=== PATIENT | male | born 1960 | race Caucasian/White ===

== ENCOUNTER 2020-01-27 09:19 | Outpatient (CLI) | payer BC, SELFPAY ==
[2020-01-27 09:42] LABS: Basophils Percent Auto 0.3 % (0.2-1.2); Eosinophils Absolute Auto 0.1 K/mm3 (0-0.3); Eosinophils Percent Auto 0.8 % (0-4.4); Hematocrit 50.3 % (42.0-52.0); Hemoglobin 17.5 g/dL (14.0-18.0); Immature Granulocyte Absolute 0.02 K/mm3 (0.00-0.031); Immature Granulocyte Percent A 0.3 % (0-0.5); Lymphocytes Absolute Auto 2.19 K/mm3 (0.9-3.2); Lymphocytes Percent Auto 28.8 % (18.3-44.2); Mean Corpuscular HGB Conc 34.8 g/dl (32-36); Mean Corpuscular Hemoglobin 33.6 pg (26-34); Mean Corpuscular Volume 96.5 fl (80-100); Mean Platelet Volume 10.5 fl (7.4-10.4); Monocytes Absolute Auto 0.6 K/mm3 (0.1-0.6); Monocytes Percent Auto 8.4 % (2.6-8.5); Neutrophils Absolute Auto 4.7 K/mm3 (1.3-6.7); Neutrophils Percent Auto 61.4 % (45.5-73.1); Platelet Count Result 178 k/mm3 (150-375); Red Blood Count 5.21 M/mm3 (4.6-6.20); Red Cell Distribution Width 13.2 % (11.5-14.5); White Blood Count 7.6 K/mm3 (4.5-10.0)
[2020-01-27 11:02] LABS: Free T4 Free Thyroxine 1.06 ng/mL (0.78-2.19); Vitamin D 25 Hydroxy 46.3 ng/mL
[2020-01-27 11:40] LABS: Alanine Aminotransferase 29 U/L (4-50); Aspartate Amino Transferase 30 U/L (17-59); Blood Urea Nitrogen 15 mg/dL (9-20); Calcium 9.1 mg/dL (8.4-10.2); Carbon Dioxide 25 mmol/L (22-30); Chloride 106 mmol/L (98-107); Cholesterol 177 mg/dL (0-200); Estimated Glomerular Filt Rate > 60; Glucose 102 mg/dL (75-110); HDL Direct 59 mg/dL; Potassium 4.4 mmol/L (3.4-5.0); Sodium 135 mmol/L (137-145); Triglycerides 69 mg/dL (<150); Uric Acid 5.4 mg/dL (3.5-8.5)
[2020-01-27 11:51] LABS: LDL Cholesterol Direct 84 mg/dL
[2020-01-27 11:58] LABS: Hemoglobin A1C 5.8 % (<5.7)
[2020-01-27 12:11] LABS: Thyroid Stimulating Hormone 0.893 uIU/mL (0.465-4.680)
[2020-01-27 12:27] LABS: Prostate Specific Antigen 1.8 ng/mL (< OR = 4.0)
[2020-01-27 13:08] LABS: Folic Acid > 20.0 ng/mL (2.76->20)
[2020-02-02 14:25] LABS: Testosterone Total 607 ng/dL (250-1100)
== END 2020-01-27 09:20 | disposition home or self-care (01) ==
LOC: ANHLAB 09:20
PROVIDERS: PCP Internal Medicine; Visit Provider Internal Medicine
DX: Z00.00 Encounter for general adult medical examination without abnormal findings (principal); Z12.5 Encounter for screening for malignant neoplasm of prostate; E55.9 Vitamin D deficiency, unspecified
CPT/HCPCS: 36415; 80048; 80061; 82306; 82607; 82746; 83036; 83735; 84153; 84402; 84403; 84439; 84443; 84450; 84460; 84550; 85025; G0103

== ENCOUNTER 2020-03-06 02:41 | Outpatient (CLI) | payer BC, SELFPAY ==
[2020-03-06 18:39] LABS: SARS-CoV-2 RNA PCR Negative
== END 2020-03-06 02:42 | disposition home or self-care (01) ==
LOC: ANHCOVIDDT 02:41
PROVIDERS: PCP Internal Medicine; Visit Provider Internal Medicine Gastroenterology
DX: Z01.812 Encounter for preprocedural laboratory examination (principal); Z20.828 Contact with and (suspected) exposure to other viral communicable diseases
CPT/HCPCS: 87635; C9803; U0003

== ENCOUNTER 2020-03-08 00:43 | Day surgery (SDC) | payer BC, SELFPAY ==
[2020-02-29 12:27] VITALS: BMI 34.3
--- NOTE | 2020-03-08 07:31 | WPDANESEPPF ---
Anes - Initial Pre Proc Eval Procedure: Operation Date: 03/08/20 09:00 Proposed Procedures p Colonoscopy - Ronny Ryan MD Date/Time: 03/08/20 07:31 Surgeon: Ronny Ryan MD Pre Op Diagnosis: Occult GI Bleed/ Fam Hx Colon Polyps Patient Data Age: 60 Gender: M Height: 1.85 m Weight: 118 kg Allergies Allergy/AdvReac Type Severity Reaction Status Date / Time No Known Allergies Allergy Verified 03/08/20 07:48 Home Medications Medication Instructions Recorded Confirmed Type allopurinol 300 mg tablet 300 mg PO DAILY 90 Days #90 tablet 02/01/20 02/29/20 Rx amlodipine 10 mg tablet 10 mg PO DAILY 90 Days #90 tablet 02/01/20 02/29/20 Rx atorvastatin 20 mg tablet 20 mg PO DAILY 90 Days #90 tablet 02/01/20 02/29/20 Rx metoprolol succinate 100 mg 100 mg PO DAILY 90 Days #90 tablet 02/01/20 02/29/20 Rx tablet,extended release 24 hr Patient hx anesthesia problems: none Family hx anesthesia problems: none PMFSH Past Medical History Medical History (Updated 03/08/20 @ 07:33 by Philip Arvizu MD) Enlarged prostate without lower urinary tract symptoms (luts) Hypertensive heart disease without heart failure Mixed hyperlipidemia Obesity Obstructive sleep apnea (adult) (pediatric) CPAP Paroxysmal atrial fibrillation CARDIOVERTED 2011 Positive occult stool blood test Surgical History Surgical History (Updated 03/08/20 @ 07:33 by Philip Arvizu MD) Hx of eye surgery R-EYE SOCKET REBUILT 2017 Family History Family History (System 09/06/19 @ 16:33 by Maryana Burch) Father Family history of gout Hypertension Mother Family history of arthritis Grandparent Family history of coronary artery disease Diabetes mellitus Other Cerebrovascular accident Family history of lung cancer Family history of malignant neoplasm of breast Family history of pancreatic cancer Social History Social History (System 09/06/19 @ 16:33 by Maryana Burch) Smoking status: Heavy tobacco smoker Second hand tobacco smoke exposure: No Alcohol intake: current Anes - Eval Final PreProcedure Day of Procedure 03/08/20 07:31 Patient weight: obese Heart: regular rate and rhythm Lungs: clear to auscultation and normal air movement Airway: Mallampati scale class II Neurological: alert and oriented Last oral intake: >/= 8 hours ASA classification: III Emergent: no Anesthetic plan: proceed Anesthesia type and monitoring: general GIVS Informed Consent: The patient's anesthetic plan and its attendant risks and benefits were discussed with the patient/family/POA. Questions were solicited and answers provided to the satisfaction of the patient/family/POA.
[2020-03-08] MEDS: LACTATED RINGERS 1,000 ML 150 ML IV CONT (08:00)
--- NOTE | 2020-03-08 08:50 | WPDGICN ---
Assessment and Plan Assessment and plan (1) Positive occult stool blood test: Code(s): R19.5 - Other fecal abnormalities Status: Acute Assessment and Plan: Patient recently found to have occult blood in the stool on a routine screening exam. Plan is for surveillance colonoscopy at this time. Further recommendations will be given after endoscopy. (2) Family history of colonic polyps: Code(s): Z83.71 - Family history of colonic polyps Status: Acute Assessment and Plan: Patient's mother had colon polyps. For this reason surveillance colonoscopy at 5 year intervals is advised. (3) Umbilical hernia: Code(s): K42.9 - Umbilical hernia without obstruction or gangrene Status: Acute Assessment and Plan: plan to observe conservatively at this time. Patient is advised if umbilical hernia become symptomatic that surgical therapy will be required. GI Consult Note Consult date/time: 03/08/20 08:50 HPI: Ortiz Daniels Jr. is a 60 year old male seen in evaluation at the request of Dr Brian Alvarez. Patient is referred for evaluation because of occult blood in stool. He denies any visible or obvious bleeding. His current weight appetite bowel movements are normal. Occult blood identified on routine screening exam. Patient's family history is significant that mother had colon polyps. Patient states his own weight appetite bowel movements are normal. He denies abdominal pain he has had no bleeding. Review of Systems Review of Systems: All systems reviewed & are unremarkable except as noted in HPI and below PMFSH Past Medical History Medical History Enlarged prostate without lower urinary tract symptoms (luts) Hypertensive heart disease without heart failure Mixed hyperlipidemia Obesity Obstructive sleep apnea (adult) (pediatric) CPAP Paroxysmal atrial fibrillation CARDIOVERTED 2011 Positive occult stool blood test Surgical History Surgical History Hx of eye surgery R-EYE SOCKET REBUILT 2017 Family History Family History Father Family history of gout Hypertension Mother Family history of arthritis Grandparent Family history of coronary artery disease Diabetes mellitus Other Cerebrovascular accident Family history of lung cancer Family history of malignant neoplasm of breast Family history of pancreatic cancer Social History Social History (System 09/06/19 @ 16:33 by Maryana Burch) Smoking status: Heavy tobacco smoker Second hand tobacco smoke exposure: No Alcohol intake: current Meds Home Medications and Allergies Home Medications Medication Instructions Recorded Confirmed Type allopurinol 300 mg tablet 300 mg PO DAILY 90 Days #90 tablet 02/01/20 02/29/20 Rx amlodipine 10 mg tablet 10 mg PO DAILY 90 Days #90 tablet 02/01/20 02/29/20 Rx atorvastatin 20 mg tablet 20 mg PO DAILY 90 Days #90 tablet 02/01/20 02/29/20 Rx metoprolol succinate 100 mg 100 mg PO DAILY 90 Days #90 tablet 02/01/20 02/29/20 Rx tablet,extended release 24 hr Allergies Allergy/AdvReac Type Severity Reaction Status Date / Time No Known Allergies Allergy Verified 03/08/20 07:48 Exam Narrative: Exam Narrative: Physical exam reveals patient to be alert. Vital signs stable. HEENT exam unremarkable. Lungs are clear to auscultation and percussion. Heart is without murmur or extra sounds. Abdominal exam bowel sounds are present soft nontender with no organomegaly. Digital external rectal exam is normal
[2020-03-08 10:02] VITALS: BP 128/67; PULSE 100; RESP 21; O2SAT 97
[2020-03-08 10:12] VITALS: BP 119/82; PULSE 97; RESP 22; O2SAT 99
[2020-03-08 10:22] VITALS: BP 121/88; PULSE 91; RESP 18; O2SAT 99
== END 2020-03-08 10:31 | disposition home or self-care (01) ==
PROVIDERS: PCP Internal Medicine; Visit Provider Internal Medicine Gastroenterology
PROC: 0DJD8ZZ Inspection of Lower Intestinal Tract, Via Natural or Artificial Opening Endoscopic (ICD-10-PCS; CPT 45378; principal; 2020-03-08 09:00)
DX: K92.1 Melena (principal); Z83.71 Family history of colonic polyps; K42.9 Umbilical hernia without obstruction or gangrene; D12.3 Benign neoplasm of transverse colon; D12.5 Benign neoplasm of sigmoid colon; D12.8 Benign neoplasm of rectum; K64.8 Other hemorrhoids
CPT/HCPCS: 45385; 88305; J7120

== ENCOUNTER 2024-11-29 00:33 | Day surgery (SDC) | payer BC, MEDICARE, SELFPAY ==
[2024-11-17 15:24] VITALS: BMI 34.4
--- NOTE | 2024-11-17 15:42 | PC.NURSE ---
Spoke with patient regarding medication Eliquis. Patient verbalizes understanding that the last dose is to be taken on 11/25/2024 and the Endoscopist will instruct them when to restart after the procedure.
--- OUTSIDE RECORDS SUMMARY | 2024-11-29 00:36 | XMS_ITS | Clinical Summary ---
Author Organization [facility] Address [facility] [place] [address] Care Team Providers Care Manufacturing Engineering Director Name Role Phone Dereck Marsh MD Primary Care Provider [phone] Allergies No known active allergies Medications allopurinol (ZYLOPRIM) 300 MG tabletIndications: Idiopathic chronic gout of multiple sites without tophus TAKE 1 TABLET BY MOUTH DAILY 90 tablet 1 07/14/20 24 Active atorvastatin (LIPITOR) 20 MG tabletIndications: Mixed hyperlipidemia TAKE 1 TABLET BY MOUTH EVERY NIGHT AT BEDTIME 90 tablet 1 08/14/19 25 Active amLODIPine (NORVASC) 10 MG tabletIndications: Primary hypertension TAKE 1 TABLET BY MOUTH DAILY 90 tablet 1 08/14/19 25 Active metoprolol succinate ER (TOPROL-XL) 100 MG 24 hr tabletIndications: Primary hypertension,Chron ic atrial fibrillation (CMS/HCC HHS/HCC) TAKE 1 TABLET BY MOUTH DAILY 90 tablet 1 08/14/19 25 Active ELIQUIS 5 MG tabletIndications: Permanent atrial fibrillation (CMS/HCC HHS/HCC) TAKE 1 TABLET BY MOUTH TWO TIMES A DAY 180 tablet 1 11/14/19 25 Active apixaban (ELIQUIS) 5 MG tabletIndications: Permanent atrial fibrillation (CMS/HCC HHS/HCC) take 1 tablet by mouth two times a day 180 tablet 1 01/11/20 24 025 Discontinued Active Problems Problem Noted Date Diagnosed Date Umbilical hernia without obstruction or gangrene 01/13/2023 Overview (01/13/2023): Added automatically from request for surgery [id number] Essential (primary) hypertension 01/04/2023 Spasmodic torticollis 11/03/2022 Non-recurrent acute suppurat jorge l otitis media of left ear with spontaneous rupture of tympanic membrane 05/20/2022 Permanent atrial fibrillation ([facility]) 05/20/2022 Torticollis, acquired 04/07/2022 Spinal stenosis of cervical region 04/07/2022 Other cervical disc degenera tion, unspecified cervical region 04/07/2022 Foraminal stenosis of cervical region 04/07/2022 Spondylolisthesis of cervical region 04/07/2022 Cervicalgia 04/07/2022 Tremor 04/07/2022 Hypertropia of right eye 05/13/2017 Diplopia 03/03/2017 Orbital fracture 2017 Fracture of other specified skull and facial bones, unspecified side, initial encounter for closed fracture 2017 Fracture of orbital floor, b low-out, right, closed, initial encounter 01/27/2017 Encounters Date Type Department Care Team Description 11/14/2024 3:20 PM CDT Office Visit [facility] Family & Internal Medicine [address] [address] Dereck Marsh MD Follow Up; Hypertension; Surgical Clearance 11/14/2024 Scan [facility] INFO SRVCS Scanned, [facility] 11/14/2024 Travel from Last 3 Months Immunizations Immunization Administration Dates Next Due Fluzone Adult - >Age 3 (Pref illed Syringe) 11/04/2021(Deferred: Patient Refused) MODERNA COVID-19 (TEASELER MIR COSME), MRNA, LNP-S, PF, 50 MCG/ 0.25 ML DOSE 06/20/2021 Family History Medical History Relation Comments Diabetes Mother Heart Attack Mother Hypertension Mother cardiac stent Mother Relation Status Comments Daughter Alive Father (Age 50) suicide Mother Alive Social History Tobacco Use Types Packs/Day Years Used Date Smoking Tobacco: Every Day Cigarettes 0.5 30 Passive Smoke Exposure: Current Smokeless Tobacco: Never Tobacco Cessation:Ready to Q uit: No; Counseling Given: Yes Comments:Trying to quit, some days none, some days a few Alcohol Use Standard Drinks/Week Comments Not Currently 0 (1 standard drink = 0.6 oz pur e alcohol) PHQ-2 Answer Date Recorded Patient Health Questionnaire-2 Score 0 03/02/2024 Sex and Gender Information Value Date Recorded Sex Assigned at Male 11/14/2024 3:12 PM CDT Legal Sex Male 1:56 AM CDT Gender Identity Male 11/14/2024 3:12 PM CDT Sexual Orientation Not on file Last Filed Vital Signs Vital Sign Reading Time Taken Comments Blood Pressure 138/86 11/14/2024 3:33 PM CDT Pulse 77 11/14/2024 3:11 PM CDT Temperature 36.2 C (97.2 F) 11/14/2024 3:11 PM CDT Respiratory Rate 16 11/14/2024 3:11 PM CDT Oxygen Saturation 99% 11/14/2024 3:11 PM CDT Inhaled Oxygen Concentration - - Weight 121.1 kg (267 lb) 11/14/2024 3:11 PM CDT Height 182.9 cm (6') 11/14/2024 3:11 PM CDT Body Mass Index 36.21 11/14/2024 3:11 PM CDT Plan of Treatment Upcoming Encounters Date Type Department Care Team (Late st Contact Info) Description 11/30/2024 10:40 AM CDT Office Visit [facility] - [address], [address] [place] [phone] Chang Carmona MD [address] [place] [address] 02/22/2025 10:40 AM CDT Office Visit [facility] - [address], [address] [place] [phone] Chang Carmona MD [address] [place] [address] 05/24/2025 1:00 PM CHILDREN'S AUTHOR Office Visit [facility] Family & Internal Medicine [address] [address] Dereck Marsh MD [address] [facility] [address] [place] [address] Health Maintenance Due Date Last Done Comments Annual Physical 01/28/1963 Hepatitis C 01/28/1978 DTaP, Tdap and Td Vaccines ( 1 - Tdap) 01/28/1979 Pneumococcal Vaccine: 50+ Years (1 of 2 - PCV) 01/28/1979 Zoster Vaccines (1 of 2) 01/28/2010 RSV Immunization or 60+ Years (1 - Risk 60-74 years 1-dose series) 2020 COVID-19 Vaccine (4 - 2023-2 5 season) 2024 06/20/2021, 10/21/2020, 09/29/2020 PHQ-2 (Physician [facility]) 07/19/2024 03/02/2024 Colorectal Cancer Screening Colonoscopy (10 Years) 03/08/2030 03/08/2020 Meningococcal B Vaccine Aged Out No l onger eligible based on patient's age to complete this topic Meningococcal Vaccine Aged Out No lesvia anamika eligible based on patient's age to complete this topic RSV Immunizations Under 20 Months Aged Out No longer eligible b ased on patient's age to complete this topic Medical Devices Implanted Type Area Salon Assistant Device Identifier Shelf Expiration Date Model / Serial / Lot Mesh Ventralex St Medium With Strap [id number] - [id number] Implanted:Qty : 1 on 01/21/2023 by Italo Alexander MD at [facility] Mesh N/A: Abdomen [employer] [id number] 10/14/2023 [id number] / / [id number] Procedures Procedure Name Priority Date/Time Associated Diagnosis Comments COLONOSCOPY GENERIC (SCAN ORDER) 03/08/2020 from Last 3 Months or Most Recently Relevant to Health Maintenance Results * COLONOSCOPY GENERIC (03/08/2020) 03/08/2020 Narrative 03/08/2020 Ordered by an unspecified provider. us Documents Scanned SCANNING Final Result from Last 3 Months or Most Recently Relevant to Health Maintenance Insurance [facility] Care Teams Manufacturing Engineering Director Relationship Specialty [place] [address] [place] [address] PCP - General FAMILY PRACTICE 11/07/20
--- OUTSIDE RECORDS SUMMARY | 2024-11-29 00:36 | XMS_ITS | Encounter Summary ---
Author Organization [facility] Address [facility] [place] [address] Care Team Providers Care Assistant Professor Surgical Technology Name Role Phone Dereck Marsh MD Primary Care Provider [phone] Encounter Details Date Type Department Care Team (Late st Contact Info) Description 01/14/2023 Prep for Procedure [facility] [address] [place] [address] [place] [address] [facility] [address] [place] [address] Social History Tobacco Use Types Packs/Day Years Used Date Smoking Tobacco: Every Day Cigarettes 0.3 30 Passive Smoke Exposure: Current Smokeless Tobacco: Never Comments:Trying to quit, gale e days none, some days a few Alcohol Use Standard Drinks/Week Comments Not Currently 0 (1 standard drink = 0.6 oz pur e alcohol) PHQ-2 Answer Date Recorded Patient Health Questionnaire-2 Score 0 11/05/2022 Sex and Gender Information Value Date Recorded Sex Assigned at Male 11/14/2024 3:12 PM CDT Legal Sex Male 1:56 AM CDT Gender Identity Male 11/14/2024 3:12 PM CDT Sexual Orientation Not on file documented as of this encounter Plan of Treatment Upcoming Encounters Date Type Department Care Team (Late st Contact Info) Description 11/30/2024 10:40 AM CDT Office Visit [facility] - [address], [address] [place] [address] Chang Carmona MD [address] [place] [address] 02/22/2025 10:40 AM CDT Office Visit [facility] - [facility] [address] [facility], [address] [place] [address] Chang Carmona MD [address] [place] [address] 05/24/2025 1:00 PM CUSTOMER EQUIPMENT ENGINEER Office Visit [facility] Family & Internal Medicine [address] [phone] Dereck Marsh MD [address] [facility] [address] [place] [address] documented as of this encounter Results * ECG 12-Lead (01/14/2023 10:21 AM CDT) 01/14/2023 10:2 1 AM CDT Narrative [facility] RAD - 01/14/2023 12:29 PM CDT [facility] Test Date: 2023-01-14 Pat Name: RACHEL JOHNSONYEHUDA Department: 85 Room: Gender: Male Residential Roofer: : 1960 Requested By: ITALO RICHMOND Order Number: [id number] Reading MD: Neptali Greenwood Measurements Intervals [place] Rate: 86 P: NM: 0 QRS: 266 QRSD: 103 T: 9 QT: 357 QTc: 429 Interpretive Statements ATRIAL FIBRILLATION RIGHT AXIS DEVIATION [QRS AXIS > 100] INCOMPLETE RIGHT BUNDLE BRANCH BLOCK [90+ ms QRS DURATION, TERMINAL R IN V1/V2, 40+ ms S IN I/aVL/V4/V5/V6] Compared to ECG 01/04/2023 13:16:53 Right-axis deviation now present Incomplete right bundle-branch block now present Left-axis deviation no longer present T-wave abnormality no longer present Procedure Note Neptali Greenwood MD - 01/14/2023 [facility] Test Date: 2023-01-14 Pat Name: RACHEL PEÑA Department: 85 Room: Gender: Male Residential Roofer: : 1960 Requested By: ITALO RICHMOND Order Number: [id number] Reading MD: Neptali Greenwood Measurements Intervals [place] Rate: 86 P: NM: 0 QRS: 266 QRSD: 103 T: 9 QT: 357 QTc: 429 Interpretive Statements ATRIAL FIBRILLATION RIGHT AXIS DEVIATION [QRS AXIS > 100] INCOMPLETE RIGHT BUNDLE BRANCH BLOCK [90+ ms QRS DURATION, TERMINAL RIN V1/V2, 40+ ms S IN I/aVL/V4/V5/V6] Compared to ECG 01/04/2023 13:16:53 Right-axis deviation now present Incomplete right bundle-branch block now present Left-axis deviation no longer present T-wave abnormality no longer present us Italo Richmond MD ECG ORDERABLES Final Result Performing Organization Address [facility]/State/[facility] Co de Phone Number [facility] RAD * MRSA SCREENING (01/14/2023 10:19 AM CDT) SPEC DESCRIPTION NASAL 01/14/2023 10:12 AM CDT [facility] SPECIAL REQUESTS NO SPECIAL REQUEST 01/14/2023 10:12 AM CDT [facility] CULTURE RESULT NO METHICILLIN RESISTANT STAPHYLOCOCCUS AUREUS ISOLATED 01/15/2023 2:33 PM CDT [facility] SPECIMEN FROM INTERNAL NOSE / Unknown 01/14/2023 10:19 AM CDT 01/14/2023 10:20 AM CDT us Italo Richmond MD MICROBIOLOGY - GENERAL ORDERABLE S Final Result [facility] [address] [place] [address], documented in this encounter Visit Diagnoses Diagnosis Preop testing- Primary Preoperative examination, unspecified Preop testing Preoperative examination, unspecified documented in this encounter Care Teams Assistant Professor Surgical Technology Relationship Specialty [place] [address] [place] [address] PCP - General FAMILY PRACTICE 11/07/20 documented as of this encounter
--- OUTSIDE RECORDS SUMMARY | 2024-11-29 00:36 | XMS_ITS | Clinical Summary ---
Author Organization [facility] Address [address] [facility] [place] [address] Care Team Providers Care Wire Stripper Name Role Phone Brian Alvarez MD Primary Care Provider [phone] Source Comments [facility],non-owned Affiliates and Associated Physician Practices is amultiple site organization consisting of ambulatory clinics and hospital sitesin [place], [place], [place] and [place]. This disclosure is being madepursuant to the Care Everywhere program and may not contain all information available regarding this patient. Last updated 18.[facility] Allergies No known active allergies Medications * Be aware that medications may not be up to date on this document. Alwaysverify current medications with the patient. metoprolol succinate XL 24hr (TOPROL XL) 100 MG tablet Take 100 mg by mouth DAILY. 01/27/2017 Active allopurinol (ZYLOPRIM) 100 MG tablet Take 300 mg by mouth DAILY. 01/27/2017 Active atorvastatin (LIPITOR) 10 MG tablet Take 20 mg by mouth. 01/27/2017 Active AMLODIPINE BESYLATE PO Take 10 mg by mouth Active GAVILYTE-N WITH FLAVOR PACK 420 g solution as directed 02/24/2020 Active Active Problems Problem Noted Date Diagnosed Date Vertical strabismus of right eye 05/13/2017 Hypertropia of right eye 05/13/2017 Diplopia 03/03/2017 Fracture of other specified skull and facial bones, unspecified side, initial encounter for closed fracture 2017 Orbital fracture 2017 Fracture of orbital floor, b low-out, right, closed, initial encounter 01/27/2017 Social History Tobacco Use Types Packs/Day Years Used Date Smoking Tobacco: Every Day Cigarettes 1.5 25 Smokeless Tobacco: Never Alcohol Use Standard Drinks/Week Comments Yes 42 (1 standard drink = 0.6 oz pu re alcohol) Sex and Gender Information Value Date Recorded Sex Assigned at Not on file Legal Sex Male 5:20 PM AVIATION SAFETY OFFICER Gender Identity Not on file Sexual Orientation Not on file Last Filed Vital Signs Vital Sign Reading Time Taken Comments Blood Pressure 135/82 12/24/2017 2:30 PM CDT Pulse 80 12/24/2017 2:33 PM CDT Temperature 36.6 C (97.8 F) 12/24/2017 1:07 PM CDT Respiratory Rate 18 12/24/2017 1:15 PM CDT Oxygen Saturation 92% 12/24/2017 2:33 PM CDT Inhaled Oxygen Concentration - - Weight 110 kg (242 lb 8 oz) 12/24/2017 9:19 AM C DT Height 185.4 cm (6' 1 ) 12/24/2017 9:19 AM CDT Body Mass Index 31.99 12/24/2017 9:19 AM CDT Plan of Treatment Health Maintenance Due Date Last Done Comments COLOGUARD (AGES 45-75) - COL ON CA SCREENING 1960 COLON MONITORING 1960 COLONOSCOPY - COLON CA SCREENING 1960 CT COLONOGRAPHY - COLON CA SCREENING 1960 Colorectal Cancer Screening 1960 FIT - COLON CA SCREENING 1960 FLEX SIG - COLON CA SCREENING 1960 HIV SCREENING 01/28/1975 HEPATITIS C SCREENING 01/24/1978 DTAP/TDAP/TD VACCINES (1 - Tdap) 01/28/1979 PNEUMOCOCCAL VACCINE 50+ (1 of 2 - PCV) 01/28/1979 LUNG CANCER SCREENING 01/28/2010 ZOSTER VACCINE (1 of 2) 01/28/2010 COVID-19 VACCINE ( - 2023-2 5 season) 2024 DEPRESSION SCREENING 07/19/2024 INFLUENZA VACCINE (Season Ended) 2025 Respiratory Syncytial Virus (RSV) Vaccine Pt: or over 60 yrs (1 - 1-dose 75+ series) 01/28/2035 HEPATITIS B VACCINE Aged Out No longe r eligible based on patient's age to complete this topic HIB VACCINE Aged Out No longer eligi ble based on patient's age to complete this topic HPV VACCINE Aged Out No longer eligi ble based on patient's age to complete this topic MENINGOCOCCAL (Group B) VACC INE SHARED DECISION-MAKING Aged Out No longer eligibl e based on patient's age to complete this topic MENINGOCOCCAL GROUPS A/C/Y/W VACCINE Aged Out No longer eligible b ased on patient's age to complete this topic Insurance ANTHEM ANTHEM [employer] GENERIC Advance Directives * Full Code (Latest Code Status on File) Date Activated Date Inactivated Comments 12/24/2017 12:16 PM 12/24/2017 4:48 PM * Full Code Date Activated Date Inactivated Comments 12/24/2017 9:09 AM 12/24/2017 12:16 PM Care Teams Wire Stripper Relationship Specialty Start Date End Date Brian Alvarez MD [address] [place] [id number] PCP - General 03/24/17
[2024-11-29 07:22] VITALS: BP 140/85; PULSE 50; RESP 18; TEMP 36.1; O2SAT 100
[2024-11-29] MEDS: LACTATED RINGERS 1,000 ML 150 ML IV CONT (07:31)
--- NOTE | 2024-11-29 07:41 | WPDANESEPPF ---
Anes - Initial Pre Proc Eval Procedure: Operation Date: 11/29/24 08:30 Proposed Procedures p Colonoscopy - Vahe Pascual MD Date/Time: 11/29/24 07:41 Surgeon: Vahe Pascual MD Pre Op Diagnosis: hx of colon polyps, family hx of polyps Patient Data Age: 64 Gender: M Height: 1.83 m Weight: 111.6 kg Last Vital Signs Temp 36.1 C L 11/29/24 07:22 Pulse 50 L 11/29/24 07:22 Resp 18 11/29/24 07:22 BP 140/85 11/29/24 07:22 Pulse Ox 100 11/29/24 07:22 O2 Del Method Room Air 11/29/24 07:22 Allergies Allergy/AdvReac Type Severity Reaction Status Date / Time No Known Allergies Allergy Verified 11/29/24 07:21 Home Medications Medication Instructions Recorded Confirmed Type allopurinol 300 mg tablet 300 mg PO DAILY 90 days #90 tabs 02/01/20 11/29/24 Rx amlodipine 10 mg tablet 10 mg PO DAILY 90 days #90 tabs 02/01/20 11/29/24 Rx atorvastatin 20 mg tablet 20 mg PO DAILY 90 days #90 tabs 02/01/20 11/29/24 Rx metoprolol succinate 100 mg 100 mg PO DAILY 90 days #90 tabs 02/01/20 11/29/24 Rx tablet,extended release 24 hr apixaban 5 mg tablet (Eliquis) 5 mg PO ONCE 11/17/24 11/29/24 History Patient hx anesthesia problems: none Family hx anesthesia problems: none Results Review: All pre-operative results and documents have been reviewed as part of the pre-operative evaluation. [facility] Past Medical History Medical History Obesity Positive occult stool blood test Enlarged prostate without lower urinary tract symptoms (luts) Hypertensive heart disease without heart failure Mixed hyperlipidemia Obstructive sleep apnea (adult) (pediatric) CPAP Paroxysmal atrial fibrillation CARDIOVERTED 2011 Surgical History Surgical History Hx of eye surgery R-EYE SOCKET REBUILT 2016 Family History Family History Father Family history of gout Hypertension Mother Family history of arthritis Grandparent Family history of coronary artery disease Diabetes mellitus Other Cerebrovascular accident Family history of lung cancer Family history of malignant neoplasm of breast Family history of pancreatic cancer Social History Social History Years smoked: 23 Smoking status: Former smoker Tobacco type: cigarettes Second hand tobacco smoke exposure: No Alcohol intake: current Substance use type: does not use Living arrangements: with family Spiritual care concerns: No Anes - Eval Final PreProcedure Day of Procedure 11/29/24 07:41 Patient weight: obese Heart: regular rate and rhythm Lungs: clear to auscultation Airway: Mallampati scale class II Neurological: alert and oriented Last oral intake: >/= 8 hours ASA classification: III Emergent: no Anesthetic plan: proceed Anesthesia type and monitoring: general GIVS and standard monitoring Results Review: All pre-operative results and documents have been reviewed as part of the pre-operative evaluation. Informed Consent: The patient's anesthetic plan and its attendant risks and benefits were discussed with the patient/family/POA. Questions were solicited and answers provided to the satisfaction of the patient/family/POA.
--- NOTE | 2024-11-29 08:38 | PM.IMHP ---
H&P: HPI History of Present Illness Date/Time: 11/29/24 08:38 Chief Complaint: History of colon polyps Narrative: The patient has a history of colonic polyps, the last colonoscopy was 5 years ago. Review of Systems Review of Systems: All systems reviewed & are unremarkable except as noted in HPI and below PMFSH Past Medical History Medical History (Updated 11/29/24 @ 08:39 by Vahe Pascual MD) Obesity Positive occult stool blood test Enlarged prostate without lower urinary tract symptoms (luts) Hypertensive heart disease without heart failure Mixed hyperlipidemia Obstructive sleep apnea (adult) (pediatric) CPAP Paroxysmal atrial fibrillation CARDIOVERTED 2011 Surgical History Surgical History Hx of eye surgery R-EYE SOCKET REBUILT 2016 Family History Family History Father Family history of gout Hypertension Mother Family history of arthritis Grandparent Family history of coronary artery disease Diabetes mellitus Other Cerebrovascular accident Family history of lung cancer Family history of malignant neoplasm of breast Family history of pancreatic cancer Social History Social History Years smoked: 23 Smoking status: Former smoker Tobacco type: cigarettes Second hand tobacco smoke exposure: No Alcohol intake: current Substance use type: does not use Living arrangements: with family Spiritual care concerns: No Meds Home Medications and Allergies Home Medications Medication Instructions Recorded Confirmed Type allopurinol 300 mg tablet 300 mg PO DAILY 90 days #90 tabs 02/01/20 11/29/24 Rx amlodipine 10 mg tablet 10 mg PO DAILY 90 days #90 tabs 02/01/20 11/29/24 Rx atorvastatin 20 mg tablet 20 mg PO DAILY 90 days #90 tabs 02/01/20 11/29/24 Rx metoprolol succinate 100 mg 100 mg PO DAILY 90 days #90 tabs 02/01/20 11/29/24 Rx tablet,extended release 24 hr apixaban 5 mg tablet (Eliquis) 5 mg PO ONCE 11/17/24 11/29/24 History Allergies Allergy/AdvReac Type Severity Reaction Status Date / Time No Known Allergies Allergy Verified 11/29/24 07:21 Vital Signs Vital Signs - 24 hr 11/29/24 07:22 Temperature 96.9 F L Pulse Rate 50 L Respiratory Rate 18 Blood Pressure 140/85 Pulse Oximetry 100 Oxygen Delivery Room Air Exam Const: General: cooperative and healthy appearing Resp: Effort & Inspection: normal respiratory effort and able to speak in complete sentences Auscultation: clear to auscultation bilaterally Cardio: Rate: regular rate Rhythm: regular rhythm GI: Inspection: normal to inspection GI Palp: No No hepatosplenomegaly present Auscultation: normal bowel sounds Rectal Exam: deferred Skin: General skin exam: normal color Psych: Appearance: grossly normal Mental Status: mental status grossly normal Assessment and Plan Assessment and plan (1) History of colonic polyps: Code(s): Z86.0100 - Personal history of colon polyps, unspecified Status: Acute Assessment and Plan: The patient is deemed a good candidate for the procedure. Consent signed. Will proceed.
[2024-11-29 09:06] VITALS: BP 111/74; PULSE 84; RESP 18; O2SAT 97
[2024-11-29 09:16] VITALS: BP 104/78; PULSE 88; RESP 18; O2SAT 97
[2024-11-29 09:26] VITALS: BP 112/80; PULSE 89; RESP 17; O2SAT 98
== END 2024-11-29 09:33 | disposition home or self-care (01) ==
PROVIDERS: PCP Family Medicine Sports Medicine; Referring Provider Family Medicine Sports Medicine; Visit Provider Internal Medicine Gastroenterology
PROC: 0DJD8ZZ Inspection of Lower Intestinal Tract, Via Natural or Artificial Opening Endoscopic (ICD-10-PCS; CPT 45378; principal; 2024-11-29 08:30)
DX: Z12.11 Encounter for screening for malignant neoplasm of colon (principal); D12.2 Benign neoplasm of ascending colon; D12.3 Benign neoplasm of transverse colon; K63.5 Polyp of colon; K64.8 Other hemorrhoids; K57.30 Diverticulosis of large intestine without perforation or abscess without bleeding; N40.0 Benign prostatic hyperplasia without lower urinary tract symptoms; I11.9 Hypertensive heart disease without heart failure; E78.2 Mixed hyperlipidemia; I48.0 Paroxysmal atrial fibrillation; G47.33 Obstructive sleep apnea (adult) (pediatric); E66.9 Obesity, unspecified; Z68.33 Body mass index [BMI] 33.0-33.9, adult; Z79.01 Long term (current) use of anticoagulants; Z99.89 Dependence on other enabling machines and devices; Z98.890 Other specified postprocedural states; Z87.891 Personal history of nicotine dependence; Z83.719 Family history of colon polyps, unspecified; Z80.3 Family history of malignant neoplasm of breast; Z80.0 Family history of malignant neoplasm of digestive organs; Z80.1 Family history of malignant neoplasm of trachea, bronchus and lung; Z82.49 Family history of ischemic heart disease and other diseases of the circulatory system
CPT/HCPCS: 45385; 88305; J2704; J7120